=== PATIENT | female | born 1995 | race Caucasian/White ===

== ENCOUNTER 2017-09-07 16:06 | Inpatient (IN) | payer OTHER ==
[~2017-09-07] VITALS: Ht 165.1 cm; Wt 52.4 kg
[2017-09-07 16:24] VITALS: BP 101/70; PULSE 93; RESP 20
[2017-09-07 16:26] VITALS: Ht 165.1 cm; Wt 52.4 kg
[2017-09-07] MEDS ORDERED: ACETAMINOPHEN 325 MG TAB PO PRN (17:00)
[2017-09-07] MEDS: BETAMET NA PHOS/AC(6 MG/ML) 5ML INJ IM SCH (17:32)
[2017-09-07] MEDS: LACTATED RINGER'S 1,000 ML IV SCH (17:32)
[2017-09-07 17:43] LABS: ADD UMIC YES; UR ASCORBIC ACID NEGATIVE (NEGATIVE); UR BACTERIA FEW /HPF (NONE SEEN); UR BILIRUBIN (Dip) NEGATIVE (NEGATIVE); UR BLOOD (Dip) NEGATIVE (NEGATIVE); UR CLARITY SLIGHTLY CLOUDY (CLEAR); UR COLOR YELLOW (YELLOW); UR GLUCOSE (Dip) NEGATIVE (NEGATIVE); UR KETONES (Dip) NEGATIVE (NEGATIVE); UR LEUKOCYTE ESTERASE (Dip) TRACE Leu/ul (NEGATIVE); UR MUCUS FEW /HPF (NONE SEEN); UR NITRITE (Dip) NEGATIVE (NEGATIVE); UR RBC 1 /HPF (0-5); UR SQUAMOUS EPITHELIAL CELL FEW /HPF (FEW); UR TOTAL PROTEIN (Dip) NEGATIVE (NEGATIVE); UR UROBILINOGEN (Dip) 1+ mg/dL (NEGATIVE)
[2017-09-07 17:47] LABS: BASOPHILS % 0.2 % (0.0-2.0); EOSINOPHILS # 0.1 10^3/ul (0.0-0.5); EOSINOPHILS % 0.6 % (0.0-7.0); HEMATOCRIT 23.3 % (37.0-47.0); HEMOGLOBIN 7.7 g/dl (12.0-16.0); LYMPHOCYTES # 1.5 10^3/ul (0.8-2.9); LYMPHOCYTES % 15.7 % (18.0-55.0); MEAN CORPUSCULAR HEMOGLOBIN 26.4 pg (29.0-33.0); MEAN CORPUSCULAR VOLUME 79.8 fl (72.0-104.0); MEAN PLATELET VOLUME 11.7 fl (7.4-10.4); MONOCYTE # 0.6 10^3/ul (0.3-0.9); MONOCYTES % 6.6 % (0.0-13.0); NEUTROPHIL # 7.3 10^3/ul (1.6-7.5); NEUTROPHILS % 76.5 % (30.0-74.0); PLATELET COUNT 206 10^3/UL (140-415); RED BLOOD COUNT 2.92 10^6/ul (4.20-5.40); RED CELL DISTRIBUTION WIDTH 13.6 % (11.5-14.5); WHITE BLOOD COUNT 9.5 10^3/ul (4.8-10.8)
[2017-09-07 18:00] LABS: PARTIAL THROMBOPLASTIN TIME 23.8 Sec (25.0-35.0)
--- NOTE | 2017-09-07 18:11 | TRIAGE ---
OB Triage Datetime Report Generated by CPN: 09/07/2017 18:11 Datetime: 09/07/2017 17:46 Assessment Type: Admission Assessment Maternal Assessment Level of Consciousness: Fully Conscious DTR's/Clonus: DTRs 2+; No Clonus Headache: Denies Blurred Vision: No Respiratory Effort: Unlabored; Regular Rhythm; Equal Expansion Breath Sounds, Left: Clear and Equal Breath Sounds, Right: Clear and Equal Nausea/Vomiting: Denies RUQ Epigastric Pain: Denies Lower Extremities Edema: None Degree: None Upper Extremities Edema: None Degree: None Facial Edema: None Fall Risk Assessment History of Falling: (0) No Secondary Diagnosis: (0) No Ambulatory Aid: (0) Bedrest/Nurse Assist IV Therapy: (0) No Gait: (0) Normal/Bedrest/Immobile Mental Status: (0) Oriented to Own Ability Fall Score: 0 Fall Risk Score Definition: No Risk: No action required Datetime: 09/07/2017 16:35 Assessment Type: Triage Maternal Assessment Level of Consciousness: Fully Conscious DTR's/Clonus: DTRs 2+; No Clonus Headache: Denies Blurred Vision: No Respiratory Effort: Unlabored; Regular Rhythm; Equal Expansion Breath Sounds, Left: Clear and Equal Breath Sounds, Right: Clear and Equal Nausea/Vomiting: Denies RUQ Epigastric Pain: Denies Lower Extremities Edema: None Degree: None Upper Extremities Edema: None Degree: None Facial Edema: None Fall Risk Assessment History of Falling: (0) No Secondary Diagnosis: (0) No Ambulatory Aid: (0) Bedrest/Nurse Assist IV Therapy: (0) No Gait: (0) Normal/Bedrest/Immobile Mental Status: (0) Oriented to Own Ability Fall Score: 0 Fall Risk Score Definition: No Risk: No action required Datetime: 09/07/2017 16:19 EGA: 35.3 Arrived By: Wheelchair Datetime: 09/07/2017 16:17 Stage of : OB Triage Datetime: 09/07/2017 16:00 Time of Arrival: 09/07/2017 16:00 Arrived By: Wheelchair Arrived From: Other Hospital Chief Complaint: CONTRACTION Movement: Present Contractions: Occasional Time Contractions Began: 09/07/2017 15:05 Rupture of Membranes: Denies Vaginal Bleeding: None Vaginal Discharge: Denies Recent Sexual Intercouse: Denies Abdominal Trauma: Not Applicable Patient Complaints: Contractions
[2017-09-07 18:48] LABS: INR 0.92; PROTIME 12.4 Sec (12.2-14.2)
[2017-09-08] MEDS: LACTATED RINGER'S 1,000 ML IV SCH ×3 (00:27→13:30)
[2017-09-08] MEDS ORDERED: PRENATAL VITAMIN PO SCH (09:00)
--- NOTE | 2017-09-08 15:08 | RADRPT ---
PROCEDURE: US OB. CLINICAL INDICATION: labor at 34 weeks gestational age. TECHNIQUE: Multiple sonographic images of the uterus were obtained. The images were revi ewed on a PACS workstation. COMPARISON: No prior studies are available for comparison. FINDINGS: There is a single live intrauterine gestation. heart rate is 131 beats per minute. Measurements were made in order to determine age. The results are as follows: BPD = 8.55 cm. HC = 30.05 cm. AC = 30.90 cm. FL = 6.42 cm. Estimated weight is 2369 +/- 355 grams. LMP growth percentile is 15.5 %. Menstrual age by ultrasound dates is 34 weeks 0 days. The estimated date of delivery is 10/20/2017. Position is cephalic and placenta is anterior grade II. There is no evidence for an abruption or halie centa previa. IMPRESSION: 1. Single live intrauterine gestation of 34 weeks 0 days menstrual age by ultrasound dates. 2. The estimated date of delivery is 10/20/2017. RPTAT: QQ .Raoul Prajapati MD, Date Time Electronically viewed and signed by .Raoul Prajapati MD, on 09/08/2017 15:08 .R/
--- NOTE | 2017-09-08 15:09 | RADRPT ---
PROCEDURE: US biophysical profile. CLINICAL INDICATION: labor at 30 weeks gestational age. TECHNIQUE: Multiple sonographic images of the uterus were obtained. The images were revi ewed on a PACS workstation. COMPARISON: No prior studies are available for comparison. FINDINGS: There is a single live intrauterine gestation. heart rate is 136 beats per minute. The position is cephalic. The placenta is anterior grade 1 with no abruption or previa. The ADRIANNE is 11.5 cm. (Normal = 5-20 cm.) Breathing Movement: 2 Gross Body Movement: 2 Tone: 2 Qualitative Amniotic Fluid Volume: 2 TOTAL: 8 IMPRESSION: 1. The biophysical score is 8/8. RPTAT: QQ .Raoul Prajapati MD, MD Date Time Electronically viewed and signed by .Raoul Prajapati MD, on 09/08/2017 15:09 .R/
[2017-09-08] MEDS: BETAMET NA PHOS/AC(6 MG/ML) 5ML INJ IM SCH (17:03)
--- NOTE | 2017-09-08 18:40 | HP ---
Date/Time of Note Date/Time of Note DATE: 09/08/17 TIME: 18:39 OB - History Hx of Present Free Text/Dictation 35+ : 1 Para: 0 Care: Good Care Ultrasounds: Normal mid trimester US Obstetrical Complications: None Past Family/Social History * Past Medical, Surgical, Family and Obstetric Histories reviewed from chart. OB Admission Exam Vital Signs Vital Signs Vital Signs Date Time Temp Pulse Resp B/P Pulse Ox O2 Delivery O2 Flow Rate FiO2 09/07/17 16:24 99.0 93 20 101/70 Physical Exam Abdomen: WNL Extremities: Normal Cervical Dilatation: None Effacement: 0% Station: Ballotable Membranes: Intact Heart Rate: 140's Accelerations: Accelerations Present Decelerations: No Decelerations Varibility: Moderate Last 72 hours Lab Results CBC & BMP 09/07/17 17:20 OB Assessment/Plan Reason for admission: observation, labor Plan: Expectant Management Other plan: Steroids, Observation &Hydration Prenatalogy consult LEATHA CEDILLO M.D. Sep 08, 2017 18:40
--- NOTE | 2017-09-08 18:41 | QN ---
Documentation Comment 35+wks GA with labor NST reassuring Cogswell NoCTXs Pelvic defeered ,BPP 06/22 --->discharged with precautions LEATHA CEDILLO M.D. Sep 08, 2017 18:41
--- NOTE | 2017-09-08 18:42 | DS ---
Date/Time of Note Date/Time of Note DATE: 09/08/17 TIME: 18:42 Discharge Summary Admission/Discharge Info Admit Date/Time Sep 07, 2017 at 16:45 Discharge Date/Time Discharge Diagnosis labor Patient Condition: Good Hospital Course Uneventful Home Meds No Active Prescriptions or Reported Meds Primary Care Provider LEATHA Kwan M.D. Sep 08, 2017 18:42
== END 2017-09-08 18:41 | disposition home or self-care (01) | DRG 780 ==
LOC: OBT 16:06 → OBG 16:07 → OBT 16:45
PROVIDERS: ADMIT Obstetrics & Gynecology; ATTEND Obstetrics & Gynecology
DX: O47.03 False labor before 37 completed weeks of gestation, third trimester (principal); Z3A.35 35 weeks gestation of pregnancy
CPT/HCPCS: 76815; 76818; 81001; 85025; 85610; 85730; 86592; 86900; 86901; 87086; G0463; J0702; J7120

== ENCOUNTER 2017-09-25 00:33 | Outpatient (CLI) | payer OTHER ==
[~2017-09-25] VITALS: Ht 162.6 cm; Wt 55.1 kg
[2017-09-25 00:56] VITALS: Ht 162.6 cm; Wt 55.1 kg
[2017-09-25 00:57] VITALS: BP 123/73; PULSE 79; RESP 16
[2017-09-25] MEDS ORDERED: PREN-93 PO (00:59)
--- NOTE | 2017-09-25 01:42 | RADRPT ---
PROCEDURE: ULTRASOUND BIOPHYSICAL PROFILE CLINICAL INDICATION: 22-year-old female with abdominal pain for viability. TECHNIQUE: Multiple sonographic images were obtained in order to perform a biophysical profile The images were reviewed on a PACS workstation. COMPARISON: Ultrasound biophysical profile September 08, 2017. FINDINGS: There is a single viable intrauterine gestation. There is a vertex presentation. Cardiac activity i s present at 159 beats per minute. The placenta is anterior. The results of the biophysical profile are as follows: breathing movement = 2/2 Gross body movement = 2/2 tone = 2/2 Qualitative amniotic fluid volume = 2/2 Amniotic fluid index equals 11.2 cm. This yields a biophysical profile score of 8/8. IMPRESSION: Biophysical profile score is 8/8. .Alex Regalado MD, MD Date Time Electronically viewed and signed by .Alex Regalado MD, MD on 09/25/2017 01:42 .M/
--- NOTE | 2017-09-25 01:42 | RADRPT ---
PROCEDURE: ULTRASOUND BIOPHYSICAL PROFILE CLINICAL INDICATION: 22-year-old female with abdominal pain for viability. TECHNIQUE: Multiple sonographic images were obtained in order to perform a biophysical profile The images were reviewed on a PACS workstation. COMPARISON: Ultrasound biophysical profile September 08, 2017. FINDINGS: There is a single viable intrauterine gestation. There is a vertex presentation. Cardiac activity i s present at 159 beats per minute. The placenta is anterior. The results of the biophysical profile are as follows: breathing movement = 2/2 Gross body movement = 2/2 tone = 2/2 Qualitative amniotic fluid volume = 2/2 Amniotic fluid index equals 11.2 cm. This yields a biophysical profile score of 8/8. IMPRESSION: Biophysical profile score is 8/8. .Alex Regalado MD, MD Date Time Electronically viewed and signed by .Alxe Regalado MD, MD on 09/25/2017 01:42 .M/
--- NOTE | 2017-09-25 02:22 | TRIAGE ---
OB Triage Datetime Report Generated by CPN: 09/25/2017 02:22 Datetime: 09/25/2017 02:10 Vaginal Exam Dilatation (cms): 0.0 Effacement (%): 20 Station: -4 Exam By: GSTRATTON Datetime: 09/25/2017 01:30 Labor Evaluation Frequency: 2-5 Monitor Mode: External Duration (sec)2399: 50-60 Pattern: Normal: <= 5 Contractions in 10 Minutes Heart Rate FHR Baseline Rate: 135 Monitor Mode: External US FHR Baseline Changes: No Baseline Change Variability: Moderate 6-25 bpm Accelerations: 15X15 Datetime: 09/25/2017 01:22 Monitor Mode: Palpation Resting Tone Cantrall: Relaxed Datetime: 09/25/2017 01:00 Labor Evaluation Frequency: 2-4 Monitor Mode: External Duration (sec)2399: 40-60 Pattern: Normal: <= 5 Contractions in 10 Minutes Heart Rate FHR Baseline Rate: 135 Monitor Mode: External US FHR Baseline Changes: No Baseline Change Variability: Moderate 6-25 bpm Category: Category I Datetime: 09/25/2017 00:46 Vaginal Exam Dilatation (cms): 0.0 Effacement (%): 30 Station: -4 Exam By: isa prince Vaginal Bleeding: None Cervix, Consistency: Firm Cervix, Position: Posterior Presentation 'A': Unable to Assess Lie 'A': Unable to Assess Datetime: 09/25/2017 00:44 Assessment Type: Triage Maternal Assessment Level of Consciousness: Fully Conscious DTR's/Clonus: DTRs 2+; No Clonus Headache: Denies Blurred Vision: No Respiratory Effort: Unlabored; Regular Rhythm; Equal Expansion Breath Sounds, Left: Clear and Equal Breath Sounds, Right: Clear and Equal Nausea/Vomiting: Denies RUQ Epigastric Pain: Denies Facial Edema: None Fall Risk Assessment History of Falling: (0) No Secondary Diagnosis: (0) No Ambulatory Aid: (0) Bedrest/Nurse Assist IV Therapy: (0) No Gait: (0) Normal/Bedrest/Immobile Mental Status: (0) Oriented to Own Ability Fall Score: 0 Fall Risk Score Definition: No Risk: No action required Datetime: 09/25/2017 00:42 Stage of : OB Triage Temperature Route: Oral Datetime: 09/25/2017 00:41 Labor Evaluation Frequency: NONE Monitor Mode: External Contraction Comments: TOCOS APPLIED Heart Rate FHR Baseline Rate: 135 Monitor Mode: External US Comments: PLACED ON EFM Datetime: 09/25/2017 00:30 Time of Arrival: 09/25/2017 00:30 EGA: 37.6 Arrived By: Wheelchair Arrived From: Home Chief Complaint: UC'S SINCE 23:30 Movement: Present Contractions: Regular Time Contractions Began: 09/24/2017 23:30 Contractions: CONSTANT Rupture of Membranes: Denies Vaginal Bleeding: None Vaginal Discharge: Denies Recent Sexual Intercouse: Denies Abdominal Trauma: Not Applicable Patient Complaints: Contractions Time Provider Notified: 09/25/2017 00:59 Provider Notified: NGUYEN Initial Plan: EFM, SVE, CALL OB Datetime: 09/08/2017 18:35 Stage of : Antepartum Time of Arrival: 09/25/2017 00:30 EGA: 37.6 Arrived By: Ambulatory Arrived From: Home Chief Complaint: ABDOMINAL AND BACK PAIN Movement: Present Contractions: Irregular Rupture of Membranes: Denies Vaginal Bleeding: None Vaginal Discharge: Denies Recent Sexual Intercouse: Denies Abdominal Trauma: Not Applicable Initial Plan: EFM Datetime: 09/08/2017 17:59 Labor Evaluation Frequency: 0 Monitor Mode: External Resting Tone Cantrall: Relaxed Heart Rate FHR Baseline Rate: 130 Monitor Mode: External US FHR Baseline Changes: No Baseline Change Variability: Moderate 6-25 bpm Accelerations: 15X15 Decelerations: None Category: Category I Pain Assessment Pain Scale: 0 Pain Presence: None/Denies Pain Type: N/A Datetime: 09/08/2017 17:00 Labor Evaluation Frequency: 0 Monitor Mode: External Resting Tone Cantrall: Relaxed Heart Rate FHR Baseline Rate: 130 Monitor Mode: External US FHR Baseline Changes: No Baseline Change Variability: Moderate 6-25 bpm Accelerations: 15X15 Decelerations: None Category: Category I Datetime: 09/08/2017 16:00 Labor Evaluation Frequency: 0 Monitor Mode: External Duration (sec)2399: 0 Resting Tone Cantrall: Relaxed Heart Rate FHR Baseline Rate: 135 Monitor Mode: Internal Scalp Electrode FHR Baseline Changes: No Baseline Change Variability: Moderate 6-25 bpm Accelerations: 15X15 Decelerations: None Category: Category I Datetime: 09/08/2017 15:00 Labor Evaluation Frequency: 0 Monitor Mode: External Resting Tone Cantrall: Relaxed Heart Rate FHR Baseline Rate: 130 Monitor Mode: External US FHR Baseline Changes: No Baseline Change Variability: Moderate 6-25 bpm Accelerations: 15X15 Decelerations: None Category: Category I Datetime: 09/08/2017 14:00 Labor Evaluation Frequency: 0 Monitor Mode: External Resting Tone Cantrall: Relaxed Heart Rate FHR Baseline Rate: 135 Monitor Mode: External US FHR Baseline Changes: No Baseline Change Variability: Moderate 6-25 bpm Accelerations: 15X15 Decelerations: None Category: Category I Datetime: 09/08/2017 13:35 Stage of : Antepartum Datetime: 09/08/2017 13:00 Labor Evaluation Frequency: x2 Monitor Mode: External Duration (sec)2399: 70 Quality: Mild Resting Tone Cantrall: Relaxed Heart Rate FHR Baseline Rate: 130 Monitor Mode: External US FHR Baseline Changes: No Baseline Change Variability: Moderate 6-25 bpm Accelerations: 15X15 Decelerations: None Category: Category I Pain Assessment Pain Scale: 0 Pain Presence: None/Denies Pain Type: N/A Datetime: 09/08/2017 12:30 Stage of : Antepartum Datetime: 09/08/2017 12:00 Labor Evaluation Frequency: irregular Monitor Mode: External Duration (sec)2399: 30-60 Quality: Mild Resting Tone Cantrall: Relaxed Monitor Mode: External US FHR Baseline Changes: No Baseline Change Variability: Moderate 6-25 bpm Accelerations: 15X15 Decelerations: None Category: Category I Pain Assessment Pain Scale: 0 Pain Presence: Intermittent Pain Type: Cramping Pain Location: Abdomen Datetime: 09/08/2017 11:00 Labor Evaluation Frequency: 10 Monitor Mode: External Duration (sec)2399: 60 Quality: Mild Resting Tone Cantrall: Relaxed Heart Rate FHR Baseline Rate: 135 Monitor Mode: External US FHR Baseline Changes: No Baseline Change Variability: Moderate 6-25 bpm Accelerations: 15X15 Decelerations: None Category: Category I Pain Assessment Pain Scale: 0 Pain Presence: None/Denies Pain Type: N/A Datetime: 09/08/2017 10:00 Labor Evaluation Frequency: 2-10 Monitor Mode: External Duration (sec)2399: 40-80 Quality: Mild Resting Tone Cantrall: Non Relaxed Heart Rate FHR Baseline Rate: 120 Monitor Mode: External US FHR Baseline Changes: No Baseline Change Variability: Moderate 6-25 bpm Accelerations: 15X15 Decelerations: None Category: Category I Pain Assessment Pain Scale: 2 Pain Presence: Intermittent Pain Type: Cramping Pain Location: Abdomen Datetime: 09/08/2017 09:00 Labor Evaluation Frequency: 1-5 Monitor Mode: External Duration (sec)2399: 40-80 Quality: Mild Resting Tone Cantrall: Non Relaxed Contraction Comments: She says she feels occasional contractions Heart Rate FHR Baseline Rate: 125 Monitor Mode: External US FHR Baseline Changes: No Baseline Change Variability: Moderate 6-25 bpm Accelerations: 15X15 Decelerations: None Category: Category I Pain Assessment Pain Scale: 2 Pain Presence: Intermittent Pain Type: Cramping Pain Location: Abdomen Pain Goal: 0 Datetime: 09/08/2017 08:00 Stage of : Antepartum Assessment Type: Ongoing Assessment Maternal Assessment Level of Consciousness: Fully Conscious DTR's/Clonus: DTRs 2+; No Clonus Headache: Denies Blurred Vision: No Respiratory Effort: Unlabored; Regular Rhythm; Equal Expansion Breath Sounds, Left: Clear and Equal Breath Sounds, Right: Clear and Equal Nausea/Vomiting: Denies RUQ Epigastric Pain: Denies Lower Extremities Edema: None Degree: None Upper Extremities Edema: None Degree: None Facial Edema: None Temperature Route: Oral Fall Risk Assessment History of Falling: (0) No Secondary Diagnosis: (0) No Ambulatory Aid: (0) Bedrest/Nurse Assist IV Therapy: (0) No Gait: (0) Normal/Bedrest/Immobile Mental Status: (0) Oriented to Own Ability Fall Score: 0 Fall Risk Score Definition: No Risk: No action required Labor Evaluation Frequency: 1.5 - 8 Monitor Mode: External Duration (sec)2399: 40-110 Quality: Mild Resting Tone Cantrall: Relaxed Contraction Comments: denies feeling contractions Heart Rate FHR Baseline Rate: 135 Monitor Mode: External US Variability: Moderate 6-25 bpm Accelerations: 15X15 Decelerations: None Pain Assessment Pain Scale: 0 Pain Presence: None/Denies Datetime: 09/08/2017 06:00 Labor Evaluation Frequency: occ Monitor Mode: External Duration (sec)2399: 40 Quality: Mild Resting Tone Cantrall: Relaxed Heart Rate FHR Baseline Rate: 135 Monitor Mode: External US Variability: Moderate 6-25 bpm Accelerations: 15X15 Decelerations: None Category: Category I Pain Presence: None/Denies Datetime: 09/08/2017 05:14 Stage of : Antepartum Temperature Route: Oral Datetime: 09/08/2017 05:10 Vaginal Exam Dilatation (cms): 0.0 Effacement (%): 30 Station: -3 Exam By: agatha Membrane Status: Intact Datetime: 09/08/2017 05:00 Labor Evaluation Frequency: x6 Monitor Mode: External Duration (sec)2399: 40-50 Quality: Mild Resting Tone Cantrall: Relaxed Heart Rate FHR Baseline Rate: 125 Monitor Mode: External US Variability: Moderate 6-25 bpm Accelerations: 15X15 Decelerations: None Category: Category I Pain Assessment Pain Scale: 2 Pain Presence: Intermittent Pain Type: Cramping Pain Location: Abdomen Pain Relief Measures: Comfort Measures Datetime: 09/08/2017 04:00 Labor Evaluation Frequency: irregular Monitor Mode: External Duration (sec)2399: 40-60 Quality: Mild Resting Tone Cantrall: Relaxed Heart Rate FHR Baseline Rate: 130 Monitor Mode: External US Variability: Moderate 6-25 bpm Accelerations: 15X15 Decelerations: None Category: Category I Datetime: 09/08/2017 02:59 Labor Evaluation Frequency: irregular Monitor Mode: External Duration (sec)2399: 40-90 Quality: Mild Resting Tone Cantrall: Relaxed Heart Rate FHR Baseline Rate: 125 Monitor Mode: External US Variability: Moderate 6-25 bpm Accelerations: 15X15 Decelerations: None Category: Category I Pain Assessment Pain Scale: 2 Pain Presence: Intermittent Pain Type: Cramping Pain Location: Abdomen Pain Relief Measures: Comfort Measures Pain Assessment Comments: pt stated pain is 1 to 2 on a scale,bolus are infusing . Datetime: 09/08/2017 02:00 Labor Evaluation Frequency: 0 Monitor Mode: External Duration (sec)2399: denies Quality: Mild Resting Tone Cantrall: Relaxed Contraction Comments: some irritability noted. Heart Rate FHR Baseline Rate: 120 Monitor Mode: External US Variability: Moderate 6-25 bpm Accelerations: 15X15 Decelerations: None Category: Category I Datetime: 09/08/2017 01:46 Contraction Comments: pt denies feeling any uc's.abdomen soft to palpation. Datetime: 09/08/2017 01:00 Labor Evaluation Frequency: 0 Monitor Mode: External Duration (sec)2399: DENIES Quality: Mild Resting Tone Cantrall: Relaxed Contraction Comments: MINOR IRRITABILITY NOTED. Heart Rate FHR Baseline Rate: 120 Monitor Mode: External US Variability: Moderate 6-25 bpm Accelerations: Prolonged Decelerations: Variable Category: Category II Pain Presence: None/Denies Datetime: 09/08/2017 00:25 Contraction Comments: pt denies feeling any uc's,more water intake encouraged. Pain Presence: None/Denies Datetime: 09/08/2017 00:00 Labor Evaluation Frequency: OCC Monitor Mode: External Duration (sec)2399: 40-70 Quality: Mild Resting Tone Cantrall: Relaxed Heart Rate FHR Baseline Rate: 120 Monitor Mode: External US Variability: Moderate 6-25 bpm Accelerations: 15X15 Decelerations: None Category: Category I Pain Presence: None/Denies Datetime: 09/07/2017 23:00 Labor Evaluation Frequency: 0 Monitor Mode: External Duration (sec)2399: DENIES Resting Tone Cantrall: Relaxed Heart Rate FHR Baseline Rate: 135 Monitor Mode: External US Variability: Moderate 6-25 bpm Accelerations: 15X15 Decelerations: None Category: Category I Pain Presence: None/Denies Datetime: 09/07/2017 22:45 Monitor Mode: External US Datetime: 09/07/2017 22:21 Monitor Mode: External Monitor Mode: External US Datetime: 09/07/2017 22:00 Labor Evaluation Frequency: 0 Monitor Mode: External Duration (sec)2399: DENIES Resting Tone Cantrall: Relaxed Heart Rate FHR Baseline Rate: 140 Monitor Mode: External US Variability: Moderate 6-25 bpm Accelerations: 15X15 Decelerations: None Category: Category I Pain Presence: None/Denies Datetime: 09/07/2017 21:00 Labor Evaluation Frequency: IRREGULAR Monitor Mode: External Duration (sec)2399: 40-50 Quality: Mild Resting Tone Cantrall: Relaxed Heart Rate FHR Baseline Rate: 140 Monitor Mode: External US Variability: Moderate 6-25 bpm Accelerations: 15X15 Decelerations: None Category: Category I Pain Presence: None/Denies Datetime: 09/07/2017 20:00 Labor Evaluation Frequency: 0 Monitor Mode: External Duration (sec)2399: DENIES Quality: Mild Resting Tone Cantrall: Relaxed Contraction Comments: SOME UTERUS IRRITABILITY NOTED INSTRUCTED PT TO STAY OFF HER BACK AND TO DRI NK MORE WATER. Heart Rate FHR Baseline Rate: 135 Monitor Mode: External US Variability: Moderate 6-25 bpm Accelerations: 15X15 Decelerations: None Category: Category I Datetime: 09/07/2017 19:17 Stage of : Antepartum Assessment Type: Ongoing Assessment Maternal Assessment Level of Consciousness: Fully Conscious DTR's/Clonus: DTRs 2+; No Clonus Headache: Denies Blurred Vision: No Respiratory Effort: Unlabored; Regular Rhythm; Equal Expansion Breath Sounds, Left: Clear and Equal Breath Sounds, Right: Clear and Equal Nausea/Vomiting: Denies RUQ Epigastric Pain: Denies Lower Extremities Edema: None Degree: None Upper Extremities Edema: None Degree: None Facial Edema: None Temperature Route: Oral Fall Risk Assessment History of Falling: (0) No Secondary Diagnosis: (0) No Ambulatory Aid: (0) Bedrest/Nurse Assist IV Therapy: (0) No Gait: (0) Normal/Bedrest/Immobile Mental Status: (0) Oriented to Own Ability Fall Score: 0 Fall Risk Score Definition: No Risk: No action required Pain Presence: None/Denies Datetime: 09/07/2017 19:04 Stage of : Antepartum Datetime: 09/07/2017 19:00 Stage of : Antepartum Labor Evaluation Frequency: 2-5 Monitor Mode: External Duration (sec)2399: 40-70 Quality: Mild Pattern: Normal: <= 5 Contractions in 10 Minutes Resting Tone Cantrall: Relaxed Heart Rate FHR Baseline Rate: 140 Monitor Mode: External US FHR Baseline Changes: No Baseline Change Variability: Moderate 6-25 bpm Accelerations: 15X15 Decelerations: None Category: Category I Pain Assessment Pain Scale: 0 Pain Presence: None/Denies Pain Goal: 3 Datetime: 09/07/2017 18:00 Stage of : Antepartum Labor Evaluation Frequency: 2-5 Monitor Mode: External Duration (sec)2399: 40-80 Quality: Mild Pattern: Normal: <= 5 Contractions in 10 Minutes Resting Tone Cantrall: Relaxed Heart Rate FHR Baseline Rate: 140 Monitor Mode: External US FHR Baseline Changes: No Baseline Change Variability: Moderate 6-25 bpm Accelerations: 15X15 Decelerations: None Category: Category I Pain Assessment Pain Scale: 2 Pain Presence: Intermittent Pain Type: Contraction Pain Location: Abdomen Pain Goal: 3 Pain Relief Measures: Comfort Measures Datetime: 09/07/2017 17:46 Fall Score: 0 Fall Risk Score Definition: No Risk: No action required Datetime: 09/07/2017 17:00 Stage of : Antepartum Labor Evaluation Frequency: 1-5 Monitor Mode: External Duration (sec)2399: 40-70 Quality: Mild Pattern: Normal: <= 5 Contractions in 10 Minutes Resting Tone Cantrall: Relaxed Heart Rate FHR Baseline Rate: 140 Monitor Mode: External US FHR Baseline Changes: No Baseline Change Variability: Moderate 6-25 bpm Accelerations: 15X15 Decelerations: None Category: Category I Pain Assessment Pain Scale: 3 Pain Presence: Intermittent Pain Type: Cramping; Contraction Pain Location: Abdomen Pain Goal: 3 Pain Relief Measures: Comfort Measures Datetime: 09/07/2017 16:35 Fall Score: 0 Fall Risk Score Definition: No Risk: No action required Datetime: 09/07/2017 16:19 EGA: 35.2
--- NOTE | 2017-09-25 18:22 | QN ---
Documentation Comment iup 37 weeks ucx vss exam wnl a/p iup 37 weeks false labor dc [place] BRIGIDA CHOI MD Sep 25, 2017 18:22
--- NOTE | 2017-09-25 18:22 | QN ---
Documentation Comment iup 37 weeks ucx vss exam wnl a/p iup 37 weeks false labor dc [place] BRIGIDA CHOI MD Sep 25, 2017 18:22
--- NOTE | 2017-09-25 18:22 | QN ---
Documentation Comment iup 37 weeks ucx vss exam wnl a/p iup 37 weeks false labor dc [place] BRIGIDA CHOI MD Sep 25, 2017 18:22
== END 2017-09-25 02:21 | disposition home or self-care (01) ==
LOC: OBT 00:33 → L-D 00:35 → OBT 02:21
PROVIDERS: ATTEND Obstetrics & Gynecology
DX: O62.9 Abnormality of forces of labor, unspecified (principal); Z3A.37 37 weeks gestation of pregnancy
CPT/HCPCS: 76818; Z7500; G0463

== ENCOUNTER 2017-09-29 23:01 | Outpatient (CLI) | payer OTHER ==
[~2017-09-29] VITALS: Ht 162.6 cm; Wt 55.5 kg
[~2017-09-29 23:01] MED LIST: PREN-93 PO
[2017-09-29 23:49] VITALS: Ht 162.6 cm; Wt 55.5 kg
[2017-09-30] MEDS ORDERED: BUTORPHANOL 2 MG INJ IV PRN ×2
[2017-09-30] MEDS ORDERED: AMPICILLIN 2 GM/NS (PMX) 100 ML IV ONE
[2017-09-30] MEDS ORDERED: MISOPROSTOL 200 MCG TAB PR PRN
[2017-09-30] MEDS ORDERED: LIDOCAINE 1% (MPF) 30 ML INJ INJ PRN
[2017-09-30] MEDS ORDERED: CARBOPROST 250 MCG INJ IM PRN
[2017-09-30] MEDS ORDERED: OXYCODONE/ASPIRIN (4.88/325) TAB PO PRN
[2017-09-30] MEDS ORDERED: METHYLERGONOVINE 0.2 MG INJ IM PRN
[2017-09-30] MEDS ORDERED: OXYTOCIN 30 UNITS/LR 500 ML IV SCH ×2
[2017-09-30] MEDS ORDERED: OXYTOCIN 30 UNITS/LR 500 ML IV PRN
[2017-09-30] MEDS: LACTATED RINGER'S 1,000 ML IV SCH ×4 (00:02→19:07)
[2017-09-30 00:21] VITALS: BP 127/60; PULSE 81; RESP 19
[2017-09-30 00:26] LABS: BASOPHILS % 0.2 % (0.0-2.0); EOSINOPHILS % 0.1 % (0.0-7.0); HEMOGLOBIN 7.6 g/dl (12.0-16.0); LYMPHOCYTES # 1.1 10^3/ul (0.8-2.9); LYMPHOCYTES % 11.7 % (18.0-55.0); MEAN CORPUSCULAR HEMOGLOBIN 24.8 pg (29.0-33.0); MEAN CORPUSCULAR HGB CONC 31.7 g/dl (32.0-37.0); MEAN CORPUSCULAR VOLUME 78.4 fl (72.0-104.0); MEAN PLATELET VOLUME 12.3 fl (7.4-10.4); MONOCYTE # 0.4 10^3/ul (0.3-0.9); MONOCYTES % 3.7 % (0.0-13.0); NEUTROPHIL # 7.9 10^3/ul (1.6-7.5); NEUTROPHILS % 83.9 % (30.0-74.0); PLATELET COUNT 185 10^3/UL (140-415); RED BLOOD COUNT 3.06 10^6/ul (4.20-5.40); RED CELL DISTRIBUTION WIDTH 14.8 % (11.5-14.5); WHITE BLOOD COUNT 9.5 10^3/ul (4.8-10.8)
[2017-09-30 00:36] LABS: ADD UMIC YES; UR ASCORBIC ACID 40 mg/dL (NEGATIVE); UR BACTERIA FEW /HPF (NONE SEEN); UR BILIRUBIN (Dip) NEGATIVE (NEGATIVE); UR BLOOD (Dip) NEGATIVE (NEGATIVE); UR CLARITY CLOUDY (CLEAR); UR COLOR AMBER (YELLOW); UR GLUCOSE (Dip) NEGATIVE (NEGATIVE); UR KETONES (Dip) 2+ mg/dL (NEGATIVE); UR LEUKOCYTE ESTERASE (Dip) TRACE Leu/ul (NEGATIVE); UR MUCUS MODERATE /HPF (NONE SEEN); UR NITRITE (Dip) NEGATIVE (NEGATIVE); UR RBC 1 /HPF (0-5); UR SPECIFIC GRAVITY (Dip) 1.021 (1.003-1.030); UR SQUAMOUS EPITHELIAL CELL MANY /HPF (FEW); UR TOTAL PROTEIN (Dip) 1+ mg/dl (NEGATIVE); UR UROBILINOGEN (Dip) 2+ mg/dL (NEGATIVE)
[2017-09-30] MEDS ORDERED: IRON1TAB78 PO (00:37)
[2017-09-30 00:38] LABS: INR 0.94; PROTIME 12.6 Sec (12.2-14.2)
[2017-09-30 00:39] LABS: PARTIAL THROMBOPLASTIN TIME 23.6 Sec (25.0-35.0)
--- NOTE | 2017-09-30 00:44 | TRIAGE ---
OB Triage Datetime Report Generated by CPN: 09/30/2017 00:44 Datetime: 09/30/2017 00:44 Assessment Type: Admission Assessment Vaginal Bleeding: None Maternal Assessment Level of Consciousness: Fully Conscious DTR's/Clonus: DTRs 2+; No Clonus Headache: Denies Blurred Vision: No Respiratory Effort: Unlabored; Regular Rhythm; Equal Expansion Breath Sounds, Left: Clear and Equal Breath Sounds, Right: Clear and Equal Nausea/Vomiting: Denies RUQ Epigastric Pain: Denies Facial Edema: None Fall Risk Assessment History of Falling: (0) No Secondary Diagnosis: (0) No Ambulatory Aid: (0) Bedrest/Nurse Assist Gait: (0) Normal/Bedrest/Immobile Mental Status: (0) Oriented to Own Ability Datetime: 09/30/2017 00:43 Time of Arrival: 09/30/2017 00:30 EGA: 38.4 Arrived By: Ambulatory Arrived From: TRIAGE Datetime: 09/30/2017 00:10 Stage of : Labor Datetime: 09/30/2017 00:00 Assessment Type: Ongoing Assessment Datetime: 09/29/2017 23:52 Stage of : OB Triage Labor Evaluation Frequency: 2-4 Monitor Mode: External Duration (sec)2399: 40-70 Quality: Moderate Pattern: Normal: <= 5 Contractions in 10 Minutes Resting Tone [place]: Relaxed Heart Rate FHR Baseline Rate: 135 Monitor Mode: External US Variability: Moderate 6-25 bpm Accelerations: 15X15 Decelerations: None Category: Category I Datetime: 09/29/2017 23:32 Stage of : OB Triage Datetime: 09/29/2017 23:20 Vaginal Exam Dilatation (cms): 0.0 Effacement (%): 0 Station: -4 Exam By: Demarcus CRAWLEY Cervix, Consistency: Firm Datetime: 09/29/2017 23:04 Contraction Comments: APPLIED Comments: APPLIED Datetime: 09/29/2017 23:00 Stage of : OB Triage Assessment Type: Triage Time of Arrival: 09/30/2017 22:54 EGA: 38.4 Arrived By: Wheelchair Arrived From: Home Chief Complaint: BACK PAIN AND ABDOMINAL PAIN SINCE 4PM Movement: Present Contractions: Regular Time Contractions Began: 09/29/2017 16:00 Contractions: 2-4 MINUTES Rupture of Membranes: Denies Vaginal Bleeding: None Vaginal Discharge: Denies Recent Sexual Intercouse: Denies Abdominal Trauma: Not Applicable Patient Complaints: Contractions; Back Pain Time Provider Notified: 09/29/2017 23:32 Provider Notified: DR. CEDILLO Initial Plan: EFM, SVE, CALL OB Maternal Assessment Level of Consciousness: Fully Conscious DTR's/Clonus: DTRs 2+; No Clonus Headache: Denies Blurred Vision: No Respiratory Effort: Unlabored; Regular Rhythm; Equal Expansion Breath Sounds, Left: Clear and Equal Breath Sounds, Right: Clear and Equal Nausea/Vomiting: Denies RUQ Epigastric Pain: Denies Lower Extremities Edema: None Degree: None Upper Extremities Edema: None Degree: None Facial Edema: None Temperature Route: Oral Fall Risk Assessment History of Falling: (0) No Secondary Diagnosis: (0) No Ambulatory Aid: (0) Bedrest/Nurse Assist IV Therapy: (0) No Gait: (0) Normal/Bedrest/Immobile Mental Status: (0) Oriented to Own Ability Fall Score: 0 Fall Risk Score Definition: No Risk: No action required Pain Assessment Pain Scale: 10 Pain Presence: Constant Pain Type: Cramping; Contraction; Ache Pain Location: Abdomen; Back Datetime: 09/25/2017 02:13 Labor Evaluation Frequency: 2-7 Monitor Mode: External Duration (sec)2399: 60-70 Pattern: Normal: <= 5 Contractions in 10 Minutes Contraction Comments: IRREGULAR PATTERN Heart Rate FHR Baseline Rate: 135 Monitor Mode: External US FHR Baseline Changes: No Baseline Change Variability: Moderate 6-25 bpm Accelerations: 15X15 Decelerations: None Category: Category I Datetime: 09/25/2017 00:44 Fall Score: 0 Fall Risk Score Definition: No Risk: No action required Datetime: 09/25/2017 00:30 EGA: 37.6 Datetime: 09/08/2017 18:35 EGA: 37.6 Datetime: 09/08/2017 08:00 Fall Score: 0 Fall Risk Score Definition: No Risk: No action required Datetime: 09/07/2017 19:17 Fall Score: 0 Fall Risk Score Definition: No Risk: No action required Datetime: 09/07/2017 17:46 Fall Score: 0 Fall Risk Score Definition: No Risk: No action required Datetime: 09/07/2017 16:35 Fall Score: 0 Fall Risk Score Definition: No Risk: No action required Datetime: 09/07/2017 16:19 EGA: 35.2
[2017-09-30] MEDS ORDERED: AMPICILLIN 1 GM/NS (PMX) 50 ML IV SCH (04:00)
--- NOTE | 2017-09-30 12:25 | RADRPT ---
PROCEDURE: US OB. CLINICAL INDICATION: Size and dates TECHNIQUE: Multiple sonographic images of the pelvis and gravid uterus were obtained. The images were reviewed on a PACS workstation. COMPARISON: US PELVIS 09/25/2017 FINDINGS: There is a single viable intrauterine gestation. Cardiac activity is present with 154 beats per min melissa. There is a vertex presentation. Measurements were made in order to determine age. The results are as follows: BPD =8.9 cm HC =32.1 cm AC =33.1 cm FL =7.0 cm Estimated gestational age of approximately 36 weeks and 2 days based on ultrasound measurements. Clinical age: 38 weeks and 5 days. The estimated date of delivery is 10/26/17, based on ultrasound measurements. The EFW = 2974 g, 17.3%, based on LMP age. RPTAT: AA IMPRESSION: Single viable intrauterine gestation of approximately 36 weeks and 2 days based on ultrasound measu rements. Smaller than clinical age by 2.5 weeks. .Nick Gonzalez MD, MD Date Time Electronically viewed and signed by .Nick Gonzalez MD, on 09/30/2017 12:25 .S/
--- NOTE | 2017-09-30 12:27 | RADRPT ---
PROCEDURE: US OB. CLINICAL INDICATION: Small for dates TECHNIQUE: Multiple sonographic images of the pelvis were obtained. The images were reviewed on a PACS workstation. COMPARISON: 09/25/2017 FINDINGS: There is a single live intrauterine . cardiac activity is identified at a rate of 14 0 beats per minute. presentation is cephalic. Placenta is anterior grade II. Biophysical profile score is as follows: Breathing 2 Movements 2 Tone 2 Fluid volume 2 Amniotic fluid index = 14.2 cm Total biophysical profile score = 8/ IMPRESSION: Biophysical profile score = 06/22 RPTAT: HH .Bhupendra Calero MD, MD Date Time Electronically viewed and signed by .Bhupendra Calero MD, on 09/30/2017 12:27 .W/
--- NOTE | 2017-10-01 14:24 | HP ---
Date/Time of Note Date/Time of Note DATE: 10/01/17 TIME: 14:24 OB - History Hx of Present : 1 Para: 0 Care: Good Care Ultrasounds: Normal mid trimester US Medical Complications: None Past Family/Social History * Past Medical, Surgical, Family and Obstetric Histories reviewed from chart. OB Admission Exam Vital Signs Vital Signs Vital Signs Date Time Temp Pulse Resp B/P Pulse Ox O2 Delivery O2 Flow Rate FiO2 09/30/17 00:21 98.0 81 19 127/60 Room Air Physical Exam Abdomen: WNL Reflexes: Normal Cervical Dilatation: None Effacement: 0% Station: Ballotable Membranes: Intact Heart Rate: 140's Accelerations: Accelerations Present Decelerations: No Decelerations Varibility: Marked Contractions on Admission: None Last 72 hours Lab Results CBC & BMP 09/29/17 23:59 OB Assessment/Plan Reason for admission: observation Plan: Expectant Management LEATHA CEDILLO M.D. Oct 01, 2017 14:24
--- NOTE | 2017-10-01 14:26 | DS ---
Date/Time of Note Date/Time of Note DATE: 10/01/17 TIME: 14:25 Discharge Summary Admission/Discharge Info Admit Date/Time 09/29/17 Discharge Date/Time 09/30/17 Discharge Diagnosis Patient Condition: Good Procedures none Hospital Course uneventful Home Meds Reported Medications Iron,Carbonyl/Vit C/Vit B12/Fa (IRON 100 PLUS TABLET) 1 Each Tablet, 1 EACH PO, TAB 09/30/17 Vit No.124/Iron/FA ( Vitamin Tablet) 1 Each Tablet, 1 EACH PO, TAB 09/25/17 Primary Care Provider LEATHA Kwan M.D. Oct 01, 2017 14:26
--- NOTE | 2017-10-01 14:27 | QN ---
Documentation Comment 38+wks GA in early labor .patients was evaluated by ,laborist and discharged home LEATHA CEDILLO M.D. Oct 01, 2017 14:27
== END 2017-09-30 21:35 | disposition home or self-care (01) ==
LOC: OBT 23:01 → L-D 23:04 → OBT 09-30 00:10 → UNDOADMIN 09-30 00:10 → L-D 09-30 00:38 → OBT 09-30 21:35
PROVIDERS: ATTEND Obstetrics & Gynecology
DX: O62.9 Abnormality of forces of labor, unspecified (principal); Z3A.38 38 weeks gestation of pregnancy
CPT/HCPCS: 36415; 76815; 76818; 81001; 85025; 85610; 85730; 86592; 86900; 86901; J7120; Z7500; G0463

== ENCOUNTER 2017-10-03 15:30 | Inpatient (IN) | payer OTHER ==
--- NOTE | 2017-09-30 21:43 | PN ---
Triage Information Date/Time Sep 30, 2017 Reason for visit: Abd/pelvic pain Weeks of Gestation 38w 4d /Para 1/0 Diabetes: none Hypertention: none Additional information PMHx: none. PSHx: none. NKDA. Objective T=98.2 BP= 110/64 Heart Rate: 140's Heart Rate Comments Accels to 170 bpm. No decels. Contractions: >10 Minutes Apart Exam Closed/thick/high and ballotable Results/Medications Imaging Results BPP 06/22. ADRIANNE 14.2 EFW 2974 grams Disposition: Discharge Assessment/Plan A: IUP at 38w 4d. False labor. P: Pt was monitored x 22 hours and she had no cervical change. She appears extremely comfortable and smiles easily. Per the US report the baby is SGA however the pt is very petite and is 5' 4", 105# when not and is 120# now and the baby's size appears very appropriate to her size. The baby appears very happy. The pt has an appt on Thursday 10/04 and will have her follow-up as scheduled. I do not feel she needs to have scheduled NST's and BPP's at this point in time. NATHANAEL MARTINEZ MD Sep 30, 2017 21:43
[~2017-10-03] VITALS: Ht 160 cm; Wt 56.8 kg
[~2017-10-03 15:30] MED LIST changes: +IRON1TAB78 PO
[2017-10-03] MEDS ORDERED: LACTATED RINGER'S 1,000 ML IV PRN (15:45)
[2017-10-03] MEDS ORDERED: BUTORPHANOL 2 MG INJ ONE ×2 (15:46→15:49)
[2017-10-03 16:00] VITALS: Ht 160 cm; Wt 56.8 kg
[2017-10-03] MEDS ORDERED: IBUPROFEN 600 MG TAB PO PRN (16:00)
[2017-10-03] MEDS ORDERED: CARBOPROST 250 MCG INJ IM PRN (16:00)
[2017-10-03] MEDS ORDERED: METHYLERGONOVINE 0.2 MG INJ IM PRN (16:00)
[2017-10-03] MEDS ORDERED: OXYTOCIN 30 UNITS/LR 500 ML IV PRN (16:00)
[2017-10-03] MEDS ORDERED: OXYTOCIN 30 UNITS/LR 500 ML IV SCH ×3 (16:00→18:00)
[2017-10-03] MEDS ORDERED: MISOPROSTOL 200 MCG TAB PR PRN (16:00)
[2017-10-03] MEDS ORDERED: LIDOCAINE 1% (MPF) 30 ML INJ INJ PRN (16:00)
[2017-10-03 16:02] LABS: BASOPHILS % 0.2 % (0.0-2.0); EOSINOPHILS % 0.1 % (0.0-7.0); HEMATOCRIT 27.5 % (37.0-47.0); HEMOGLOBIN 8.6 g/dl (12.0-16.0); LYMPHOCYTES # 1.7 10^3/ul (0.8-2.9); LYMPHOCYTES % 13.1 % (18.0-55.0); MEAN CORPUSCULAR HEMOGLOBIN 24.6 pg (29.0-33.0); MEAN CORPUSCULAR HGB CONC 31.3 g/dl (32.0-37.0); MEAN CORPUSCULAR VOLUME 78.8 fl (72.0-104.0); MONOCYTE # 0.5 10^3/ul (0.3-0.9); MONOCYTES % 3.6 % (0.0-13.0); NEUTROPHIL # 10.5 10^3/ul (1.6-7.5); NEUTROPHILS % 82.5 % (30.0-74.0); PLATELET COUNT 256 10^3/UL (140-415); RED BLOOD COUNT 3.49 10^6/ul (4.20-5.40); RED CELL DISTRIBUTION WIDTH 15.1 % (11.5-14.5); WHITE BLOOD COUNT 12.7 10^3/ul (4.8-10.8)
[2017-10-03 16:17] LABS: INR 0.93; PARTIAL THROMBOPLASTIN TIME 23.9 Sec (25.0-35.0); PROTIME 12.5 Sec (12.2-14.2)
[2017-10-03] MEDS: BUTORPHANOL 2 MG INJ IV PRN (17:05)
[2017-10-03] MEDS: LACTATED RINGER'S 1,000 ML IV SCH ×3 (17:05→22:35)
[2017-10-03] MEDS ORDERED: FENTAnyl 2MCG/ML-ROPIV 0.2% 100 ML ONE (18:20)
[2017-10-04] MEDS ORDERED: FENTAnyl 2MCG/ML-ROPIV 0.2% 100 ML ONE (02:10)
[2017-10-04] MEDS ORDERED: NALOXONE (0.4 MG/ML) INJ IV PRN ×2 (02:30→22:00)
[2017-10-04] MEDS: FENTAnyl 2MCG/ML-ROPIV 0.2% 100 ML BAG EPI SCH ×3 (02:42→18:06)
[2017-10-04] MEDS: LACTATED RINGER'S 1,000 ML IV SCH ×2 (06:45→23:37)
[2017-10-04] MEDS ORDERED: DEXTROSE 5%-LR 1,000 ML IV SCH (10:11)
[2017-10-04] MEDS ORDERED: LACTATED RINGER'S 1,000 ML IV SCH (10:11)
--- NOTE | 2017-10-04 16:04 | HP ---
Date/Time of Note Date/Time of Note DATE: 10/04/17 TIME: 16:03 OB - History Hx of Present Free Text/Dictation @39+wks GA in labor : 1 Para: 0 Care: Good Care Ultrasounds: Normal mid trimester US Obstetrical Complications: None Medical Complications: None Past Family/Social History * Past Medical, Surgical, Family and Obstetric Histories reviewed from chart. OB Admission Exam Physical Exam Abdomen: WNL Extremities: Normal Cervical Dilatation: 1cm Effacement: 75% Station: -1 Membranes: Intact Heart Rate: 140's Accelerations: Accelerations Present Decelerations: No Decelerations Varibility: Moderate Contractions on Admission: < 5 Minutes Apart Last 72 hours Lab Results CBC & BMP 10/03/17 15:45 OB Assessment/Plan Reason for admission: observation Plan: Expectant Management LEATHA CEDILLO M.D. Oct 04, 2017 16:04
[2017-10-04] MEDS: BUTORPHANOL 2 MG INJ IV PRN (18:07)
[2017-10-04] MEDS ORDERED: CEFAZOLIN 2 GM/50 ML (PMX) 50 ML IVPB ONE (19:53)
[2017-10-04] MEDS ORDERED: OXYTOCIN 30 UNITS/LR 500 ML IV PRN (20:00)
[2017-10-04] MEDS ORDERED: CEFAZOLIN 2 GM/50 ML (PMX) 50 ML IV SCH (20:00)
[2017-10-04] MEDS ORDERED: METHYLERGONOVINE 0.2 MG INJ IM PRN (20:00)
[2017-10-04] MEDS ORDERED: CARBOPROST 250 MCG INJ IM PRN (20:00)
[2017-10-04] MEDS ORDERED: MISOPROSTOL 200 MCG TAB PR PRN (20:00)
[2017-10-04] MEDS ORDERED: morphine SULFATE/PF (10 MG/10 ML) INJ ONE (20:15)
[2017-10-04] MEDS ORDERED: EPHEDrine SULFATE 50 MG/5 ML SYG ONE (20:15)
[2017-10-04] MEDS ORDERED: METOCLOPRAMIDE 10 MG INJ ONE (20:15)
[2017-10-04] MEDS ORDERED: OXYTOCIN 10 UNIT INJ ONE (20:15)
[2017-10-04] MEDS ORDERED: ONDANSETRON 4 MG INJ ONE (20:15)
[2017-10-04] MEDS ORDERED: OXYTOCIN 30 UNITS/LR 500 ML IV ONE (20:15)
--- NOTE | 2017-10-04 21:17 | OPPN ---
Date/Time of Note Date/Time of Note DATE: 10/04/17 TIME: 21:16 Operative Report Planned Procedure Procedure date Oct 04, 2017 Procedure(s) Primary c/section Performed by see signature line Telecom Coordinator Pre-procedure diagnosis Failure to descent Anesthesia Type: spinal Post-Procedure Post-procedure diagnosis same Findings Live Baby [], Apgars [] and [], weight [], position [], [] presentation []cord. Estimated Blood Loss: 500 - 600 mls Specimen(s) none Grafts/Implant(s) none Complication(s) none LEATHA CEDILLO M.D. Oct 04, 2017 21:17
[2017-10-04] MEDS: KETOROLAC 30 MG INJ IV PRN (21:47)
[2017-10-04] MEDS ORDERED: ONDANSETRON 4 MG INJ IV PRN (22:00)
[2017-10-04] MEDS ORDERED: EPHEDrine SULFATE 50 MG/5 ML SYG IV PRN (22:00)
[2017-10-04] MEDS ORDERED: DIPHENHYDRAMINE 50 MG INJ IV PRN (22:00)
[2017-10-04] MEDS ORDERED: morphine SULFATE/PF (10 MG/10 ML) INJ SPINAL ONE (22:00)
[2017-10-04] MEDS ORDERED: morphine 2 MG INJ IV PRN (22:00)
[2017-10-04] MEDS ORDERED: morphine 4 MG/ML VIAL IV PRN (22:00)
--- NOTE | 2017-10-04 22:43 | OPR ---
DATE OF OPERATION: 10/04/2017 PREOPERATIVE DIAGNOSIS: Failure to descend for more than 4 hours despite rupture of membranes. POSTOPERATIVE DIAGNOSIS: Failure to descend for more than 4 hours despite rupture of membranes. PROCEDURE: Primary section. ATTENDING SURGEON: Luis Angel Cedillo MD EARLY [employer]IL[employer]OD [employer] COORDINATOR: Dr. Campos. TYPE OF ANESTHESIA: Spinal. ANESTHESIOLOGIST: Dr. Espinoza. COMPLICATIONS: None. ESTIMATED BLOOD LOSS: 600 mL. TECHNIQUE: The patient was taken to the operating room where spinal anesthesia was found to be adeq uate. The patient was placed in supine position. After prep and drape, a Pfannenstiel incision was made 2 cm above the symphysis pubis. It was extended to the underlying fascia. Fascia was nicked in the midline. Fascial incision was extended bilaterally. Fascia was from underlying mu scles. Muscles were in the midline. Peritoneum was entered sharply. Peritoneal incision was extended. Bladder blade was placed inside the abdominal cavity. Lower uterine segment incisio n was made. Baby was delivered vertex, handed to the NICU team. Cord blood sent. Placenta was rem lucia manually. Uterus was exteriorized. Intrauterine cavity was cleaned using 2 sponges. Lower ut erine segment incision was closed in 2 layers using 0 looped PDS sutures. Uterus was inserted insid e the abdominal cavity. Gutters were cleaned. Muscles and peritoneum were reapproximated using 2-0 chromic sutures. Fascia was closed in a running nonlocking fashion using 0 looped PDS sutures. Georges bcutaneous tissue was closed using plain sutures. The skin was closed using 2-0 Monocryl sutures. Dermabond was placed on top of the incision. The patient tolerated the procedure well and was trans ferred to the recovery room in stable condition. There was no complication regarding this surgery. Dictated By: LUIS ANGEL CEDILLO MD RG/NTS Conf#: [id number] DID#: [id number] CC: HONORIO CAMPOS MD; LUIS ANGEL CEDILLO MD;*EndCC*
[2017-10-04 23:50] VITALS: BP 110/62; PULSE 75; RESP 20
[2017-10-04] MEDS: CEFAZOLIN 1 GM/50 ML (PMX) 50 ML IV SCH (23:58)
[2017-10-05] MEDS ORDERED: MISOPROSTOL 200 MCG TAB PR PRN
[2017-10-05] MEDS ORDERED: OXYTOCIN 30 UNITS/LR 500 ML IV PRN
[2017-10-05] MEDS ORDERED: METHYLERGONOVINE 0.2 MG INJ IM PRN
[2017-10-05] MEDS ORDERED: CARBOPROST 250 MCG INJ IM PRN
[2017-10-05] MEDS ORDERED: LANOLIN 7 GM TUBE TOP PRN
[2017-10-05] MEDS: LACTATED RINGER'S 1,000 ML IV SCH ×3 (03:55→23:37)
[2017-10-05 04:09] VITALS: BP 120/70; PULSE 70; RESP 20
[2017-10-05] MEDS: CEFAZOLIN 1 GM/50 ML (PMX) 50 ML IV SCH ×2 (07:49→16:02)
[2017-10-05 08:10] VITALS: BP 108/64; PULSE 72; RESP 19
[2017-10-05] MEDS: SENNA/DOCUSATE NA (8.6MG/50MG) TAB PO SCH ×2 (08:33→20:49)
--- NOTE | 2017-10-05 08:37 | QN ---
Documentation Comment POD#1 is stable ,afebrile tolerates diet No Vb +flatus +adequate urine VS stable Gen NAD Abd soft NT ND Incision intact Geenitalia No blood at perinium --->discharge plan tomorrow LEATHA CEDILLO M.D. Oct 05, 2017 08:36
--- NOTE | 2017-10-05 08:38 | DS ---
Date/Time of Note Date/Time of Note DATE: 10/05/17 TIME: 08:38 Discharge Summary Admission/Discharge Info Admit Date/Time Oct 03, 2017 at 16:00 Discharge Date/Time Sep Discharge Diagnosis Patient Condition: Good Procedures c/section Hospital Course uneventful Home Meds Reported Medications Iron,Carbonyl/Vit C/Vit B12/Fa (IRON 100 PLUS TABLET) 1 Each Tablet, 1 EACH PO, TAB 09/30/17 Vit No.124/Iron/FA ( Vitamin Tablet) 1 Each Tablet, 1 EACH PO, TAB 09/25/17 Primary Care Provider LEATHA Kwan M.D. Oct 05, 2017 08:38
[2017-10-05 11:31] LABS: ABNORMAL IP MESSAGE 1; HEMATOCRIT 21.5 % (37.0-47.0); MEAN CORPUSCULAR HEMOGLOBIN 24.9 pg (29.0-33.0); MEAN CORPUSCULAR HGB CONC 31.6 g/dl (32.0-37.0); MEAN CORPUSCULAR VOLUME 78.8 fl (72.0-104.0); MEAN PLATELET VOLUME 11.7 fl (7.4-10.4); PLATELET COUNT 193 10^3/UL (140-415); RED BLOOD COUNT 2.73 10^6/ul (4.20-5.40); RED CELL DISTRIBUTION WIDTH 15.5 % (11.5-14.5); WHITE BLOOD COUNT 14.2 10^3/ul (4.8-10.8)
[2017-10-05 11:40] LABS: POSITIVE DIFF @See below
[2017-10-05 11:41] LABS: HEMOGLOBIN 6.8 g/dl (12.0-16.0)
[2017-10-05] MEDS: KETOROLAC 30 MG INJ IV PRN ×2 (11:54→17:32)
[2017-10-05 12:43] VITALS: BP 106/66; PULSE 87; RESP 19
[2017-10-05 13:08] LABS: ANISOCYTOSIS 2+ (0-0); MICROCYTOSIS 2+ (0-0); MONOCYTES % (M) 6 % (0-13); PLATELET ESTIMATE NORMAL; POLYCHROMASIA 3+ (0-0)
[2017-10-05 16:00] VITALS: BP 105/64; PULSE 64; RESP 19
[2017-10-05 20:00] VITALS: BP 108/62; PULSE 86; RESP 19
[2017-10-05] MEDS: IBUPROFEN 600 MG TAB PO SCH (22:58)
[2017-10-06 04:00] VITALS: BP 109/50; PULSE 71; RESP 19
[2017-10-06] MEDS: IBUPROFEN 600 MG TAB PO SCH ×3 (05:30→17:49)
[2017-10-06] MEDS: OXYCODONE/ACETAMINOPHEN (5/325) TAB PO PRN ×2 (05:48→14:38)
[2017-10-06] MEDS: LACTATED RINGER'S 1,000 ML IV SCH ×2 (06:44→14:37)
[2017-10-06 08:40] VITALS: BP 108/58; PULSE 85; RESP 18
[2017-10-06] MEDS ORDERED: INFLUENZA VIRUS VACCINE 0.5 ML (DISPENSING) IM* ONE (09:00)
[2017-10-06] MEDS: SENNA/DOCUSATE NA (8.6MG/50MG) TAB PO SCH ×2 (10:02→21:30)
[2017-10-06 16:30] VITALS: BP 104/58; PULSE 85; RESP 18
[2017-10-06 20:00] VITALS: BP 110/60; PULSE 98; RESP 19
[2017-10-07] MEDS: IBUPROFEN 600 MG TAB PO SCH ×3 (00:05→11:41)
[2017-10-07 04:00] VITALS: BP 91/54; PULSE 74; RESP 18
[2017-10-07 08:00] VITALS: BP 109/64; PULSE 70; RESP 18
[2017-10-07] MEDS ORDERED: DIPHTH/TET/ACEL PERTUSS (ADULT) 0.5 ML VIAL IM* ONE (09:00)
[2017-10-07] MEDS: SENNA/DOCUSATE NA (8.6MG/50MG) TAB PO SCH (09:17)
[2017-10-07] MEDS: OXYCODONE/ACETAMINOPHEN (5/325) TAB PO PRN (12:31)
== END 2017-10-07 14:25 | disposition home or self-care (01) | DRG 766 ==
LOC: L-D 15:30 → OBT 15:30 → L-D 16:00 → OBT 16:00 → L-D 10-04 20:01 → PP1 10-04 23:25
PROVIDERS: ADMIT Obstetrics & Gynecology; ATTEND Obstetrics & Gynecology
PROC: 10D00Z1 Extraction of Products of Conception, Low, Open Approach (ICD-10-PCS; principal; 2017-10-04 20:00)
DX: O32.4XX0 Maternal care for high head at term, not applicable or unspecified (principal); Z37.0 Single live birth; Z3A.38 38 weeks gestation of pregnancy
CPT/HCPCS: 62319; 85025; 85610; 85730; 86592; 86900; 86901; 87340; 90686; 90715; 94760; 99464; J0595; J0690; J1885; J2270; J2274; J2405; J2590; J2765; J3010; J7120; J7121

== ENCOUNTER 2017-11-14 | Emergency (ER) | END 2017-11-14 06:56 | disposition left against medical advice (07) ==